=== PATIENT | female | born 1980 | race Caucasian/White ===

== ENCOUNTER 2016-08-24 18:57 | Emergency (ER) | payer SELFPAY ==
[~2016-08-24 18:57] MED LIST: IBUP800 PO; PROZ20CA11 PO; REME15TA PO; TRAM50 PO
[2016-08-24 19:00] VITALS: BP 139/94; PULSE 82; RESP 14; TEMP 98.5; O2SAT 99
== END 2016-08-24 21:23 | disposition left against medical advice (07) ==
LOC: NED 18:57
DX: R25.1 Tremor, unspecified (principal); Z53.21 Procedure and treatment not carried out due to patient leaving prior to being seen by health care provider
CPT/HCPCS: 99281

== ENCOUNTER 2016-12-21 05:21 | Emergency (ER) | payer SELFPAY ==
[2016-12-21 05:23] VITALS: BP 136/101; PULSE 102; RESP 18; TEMP 98.6; O2SAT 97
[2016-12-21 06:14] VITALS: BP 130/77; PULSE 86; RESP 16; O2SAT 96
[2016-12-21] MEDS ORDERED: GABA800T PO (06:16)
[2016-12-21] MEDS ORDERED: PROZ20CA11 PO ×2 (06:16→06:27)
[2016-12-21] MEDS ORDERED: REME45TA PO ×2 (06:16→06:27)
[2016-12-21] MEDS ORDERED: GABA300C5 PO (06:27)
--- NOTE | 2016-12-21 06:27 | PD ---
HPI Chief Complaint: Alcohol/Drug Intoxication Time Seen by Provider: 06:11 Travel History International Travel<30 days: No Contact w/Intl Traveler<30days: No Traveled to known affect area: No History of Present Illness HPI This is a 36-year-old female who presents to the emergency department for help with alcohol dependence. She wants to stop drinking. Her last drink was at 3 AM this morning. She starting to feel shaky, constant, moderate severity, feeling anxious in her scan and she just wants it to stop. She denies any thoughts of hurting herself or others. She really doesn't want to go to a detox program. She is also out of her bipolar medications. PFSH Past Medical History Asthma: Yes Blood Disorders: No Depression: Yes Cancer: No Cardiovascular Problems: No Endocrine: No Genitourinary: No Immune Disorder: No Musculoskeletal: No Neurologic: Yes (BIPOLAR) Psychiatric: No Reproductive: No Respiratory: Yes ?: Not : 2 : 1 Social History Alcohol Use: Yes (vodka, wine all day) Tobacco Use: Yes (1 pk daily) Substance Use: No Allergies-Medications (Allergen,Severity, Reaction): Coded Allergies: No Known Allergies (Unverified , 03/18/15) Reported Meds & Prescriptions Reported Meds & Active Scripts Active Motrin 800 Mg Tab (Ibuprofen) 800 Mg Tab 800 Mg PO Q8HR Ultram (Tramadol HCl) 50 Mg Tab 50 Mg PO Q4H PRN Reported Remeron 15 mg (Mirtazapine) 15 Mg Tab 1 Tab PO HS Prozac (Fluoxetine HCl) 20 Mg Cap 20 Mg PO HS Review of Systems Except as stated in HPI: all other systems reviewed are Neg Physical Exam Narrative GENERAL:Well appearing, no acute distress SKIN: Focused skin assessment warm and dry. HEAD: Atraumatic. Normocephalic. EYES: Pupils equal and round. No injection or drainage. ENT: Moist mucous membranes NECK: Trachea midline. CARDIOVASCULAR: Regular rate and rhythm. No murmur appreciated. RESPIRATORY: Clear to auscultation. Breath sounds equal bilaterally. GASTROINTESTINAL: Abdomen soft, non-tender, nondistended. MUSCULOSKELETAL: No obvious deformities. NEUROLOGICAL: Awake and alert. No obvious cranial nerve deficits. Moving all extremities. PSYCHIATRIC: Tearful, denies suicidal ideation or homicidal ideation. Data Data Last Documented VS Vital Signs Date Time Temp Pulse Resp B/P Pulse Ox O2 Delivery O2 Flow Rate FiO2 12/21/16 06:14 86 16 130/77 96 Room Air 12/21/16 05:[address] [facility] Medical Decision Making Medical Screen Exam Complete: Yes Emergency Medical Condition: Yes Interpretation(s) Afebrile, mild tachycardia, normotensive Differential Diagnosis Acute alcohol withdrawal, delirium tremens, alcoholic hallucinosis Narrative Course This is a 36-year-old female who presents to the emergency department with symptoms of alcohol withdrawal. She stopped drinking earlier this morning. She also is out of her bipolar medications. I think it's reasonable to refill her bipolar medications that are controlled. She was given 2 mg of IM Ativan in the emergency department. She doesn't appear to have delirium tremens or advanced alcohol withdrawal at this time and I think she is appropriate for outpatient therapy. I encouraged her to follow-up with [facility] but I did provide her with gabapentin for the symptoms of withdrawal. Diagnosis Primary Impression: Alcohol withdrawal Qualified Code: F10.230 - Alcohol withdrawal, uncomplicated Patient Instructions: General Instructions Additional Instructions: Follow up with [facility] in regards to psychiatric or substance related issues at: [address] [place], [place] [id number] Med/Other Pt SpecificInfo: Prescription(s) given Scripts Fluoxetine (Prozac)20 Mg Cap20 Mg PO DAILY #30 CAP Ref 0 Prov:Ayla Gore MD 12/21/16 Mirtazapine (Remeron)45 Mg Tab45 Mg PO HS #30 TAB Ref 0 Prov:Ayla Gore MD 12/21/16 Gabapentin 300 Mg Tew099 Mg PO TID #12 CAP Ref 0 Take one tablet three times daily on days 1-3 then one tablet twice daily on day 4 Take one tablet in the evening as needed if symptoms persist Prov:Ayla Gore MD 12/21/16 Disposition: 01 DISCHARGE HOME Condition: Stable Ayla Gore MD Dec 21, 2016 06:27
[2016-12-21] MEDS ORDERED: LORazepam 2 MG/ML VIAL IM ONE (06:30)
[2016-12-21 10:24] VITALS: BP 106/66; PULSE 84; RESP 17; O2SAT 97
== END 2016-12-21 10:35 | disposition home or self-care (01) ==
LOC: NEPE 05:21
DX: F10.239 Alcohol dependence with withdrawal, unspecified (principal); F31.9 Bipolar disorder, unspecified; R00.0 Tachycardia, unspecified; J45.909 Unspecified asthma, uncomplicated; F32.9 Major depressive disorder, single episode, unspecified; F17.200 Nicotine dependence, unspecified, uncomplicated; Z79.899 Other long term (current) drug therapy
CPT/HCPCS: 96372; 99284; J2060

== ENCOUNTER 2016-12-22 20:58 | Emergency (ER) | payer SELFPAY ==
[~2016-12-22] VITALS: Ht 167.6 cm; Wt 67.0 kg
[~2016-12-22 20:58] MED LIST changes: +GABA300C5 PO; +GABA800T PO; -IBUP800 PO; -REME15TA PO; +REME45TA PO; -TRAM50 PO
[2016-12-22 21:01] VITALS: BP 153/106; PULSE 117; RESP 16; TEMP 98.9; O2SAT 97
--- NOTE | 2016-12-22 21:37 | PD ---
Physical Exam Time Seen by Provider: 21:36 Narrative 36 y/o female here for evaluation of withdrawal from alcohol/cocaine. Last used 4 days ago. Seen here yesterday for the same. She feels anxious, tremulous and nauseas. Vital signs reviewed. Seen at triage desk. Awaiting bed placement. Data Data Last Documented VS Vital Signs Date Time Temp Pulse Resp B/P Pulse Ox O2 Delivery O2 Flow Rate FiO2 12/22/16 21:01 98.9 117 16 153/106 97 Room Air [facility] Medical Record Reviewed: Yes Supervised Visit with OLLIE: Betito Lynn Dec 22, 2016 21:37
== END 2016-12-22 21:56 | disposition left against medical advice (07) ==
LOC: NED 20:58
DX: F10.239 Alcohol dependence with withdrawal, unspecified (principal)
CPT/HCPCS: 99281

== ENCOUNTER 2017-02-25 08:57 | Emergency (ER) | payer SELFPAY ==
[~2017-02-25] VITALS: Ht 167.6 cm; Wt 65.0 kg
[2017-02-25 09:05] VITALS: BP 126/61; PULSE 97; RESP 18; TEMP 98.2; O2SAT 99
[2017-02-25] MEDS ORDERED: SODIUM CHLOR 0.9% 1000 ML INJ 1,000 ML IV ONE (09:30)
[2017-02-25] MEDS ORDERED: ONDANSETRON HCL 4 MG/2 ML VIAL IV PUSH ONE ×2 (09:30→12:00)
[2017-02-25 10:08] LABS: AUTOMATED NEUTROPHIL # 5.3 TH/MM3 (1.8-7.7); BASOPHIL % 0.2 % (0.0-2.0); EOSINOPHIL % 0.3 % (0.0-4.0); HEMATOCRIT 44.1 % (35.0-46.0); HEMO FLAGS DIFF FINAL; LYMPH % 13.9 % (9.0-44.0); LYMPHOCYTE # 0.9 TH/MM3 (1.0-4.8); MEAN CELL VOLUME 90.9 FL (80.0-100.0); MEAN CORPUSCULAR HEMOGLOBIN 30.7 PG (27.0-34.0); MEAN CORPUSCULAR HGB CONC 33.8 % (32.0-36.0); NEUT % 79.6 % (16.0-70.0); PLATELET COUNT 177 TH/MM3 (150-450); RED BLOOD COUNT 4.85 MIL/MM3 (4.00-5.30); RED CELL DISTRIBUTION WIDTH 12.9 % (11.6-17.2); WHITE BLOOD COUNT 6.7 TH/MM3 (4.0-11.0)
[2017-02-25 10:30] LABS: ANION GAP 13 MEQ/L (5-15); AST (GOT) 34 U/L (15-37); BICARBONATE 21.5 MEQ/L (21.0-32.0); CHLORIDE 104 MEQ/L (98-107); GLOMERULAR FILTRATION RATE 89 ML/MIN (>89); POTASSIUM 3.7 MEQ/L (3.5-5.1); SODIUM (NA) 138 MEQ/L (136-145)
--- NOTE | 2017-02-25 10:34 | PD ---
HPI Chief Complaint: Alcohol/Drug Intoxication Time Seen by Provider: 09:16 Travel History International Travel<30 days: No Contact w/Intl Traveler<30days: No Traveled to known affect area: No History of Present Illness HPI 36-year-old female came to the emergency room with history of alcohol withdrawal. Patient says that she had successfully done the rehabilitation for alcohol and was clean for 5 years and then 8 months ago started drinking and has progressively increased to about 18 beers a day. She went to [facility] yesterday to check herself in for rehabilitation again but was turned down because she was drunk as per them. Patient says that in past 24 hours she has drank 12 beers but the last one was at 9 PM. Says she feels very sick. She has vomited few times and feels shaky. She now she is withdrawing. She was brought in by EMS. Patient seemed to be distressed and tearful. Vital signs were relatively stable. She is also on psych medication and says she's been taking them like she supposed to. She denied doing any drugs. [facility] Past Medical History Narrative Medical List of her past medical, surgical, social and family history is reviewed from the nursing note. Asthma: Yes Blood Disorders: No Bipolar Disorder: Yes Depression: Yes Cancer: No Cardiovascular Problems: No Endocrine: No Genitourinary: No Immune Disorder: No Musculoskeletal: No Neurologic: Yes (BIPOLAR) Psychiatric: No Reproductive: No Respiratory: Yes Seizures: Yes (ETOH WITHDRAWL) ?: Not LMP: 01/28/17 : 2 : 1 Past Surgical History Surgical History: No Previous Surgery Other Surgery: No Social History Alcohol Use: Yes (vodka, wine all day) Tobacco Use: Yes (1 pk daily) Substance Use: No Allergies-Medications (Allergen,Severity, Reaction): Coded Allergies: No Known Allergies (Unverified , 12/22/16) Comments No known drug allergies. Reported Meds & Prescriptions Reported Meds & Active Scripts Active Reported Gabapentin 800 Mg Tab 800 Mg PO TID Prozac (Fluoxetine HCl) 20 Mg Cap 20 Mg PO DAILY Remeron (Mirtazapine) 45 Mg Tab 45 Mg PO HS Narrative Medication List of her home medications reviewed from the nursing note. Review of Systems Except as stated in HPI: all other systems reviewed are Neg Physical Exam Narrative GENERAL: Awake, alert, anxious, moderate distress SKIN: Focused skin assessment warm/dry. HEAD: Atraumatic. Normocephalic. EYES: Pupils equal and round. No scleral icterus. No injection or drainage. ENT: No nasal bleeding or discharge. Mucous membranes pink and moist. NECK: Trachea midline. No JVD. CARDIOVASCULAR: Regular rate and rhythm. No murmur appreciated. RESPIRATORY: No accessory muscle use. Clear to auscultation. Breath sounds equal bilaterally. GASTROINTESTINAL: Abdomen soft, non-tender, nondistended. Hepatic and splenic margins not palpable. MUSCULOSKELETAL: No obvious deformities. No clubbing. No cyanosis. No edema. NEUROLOGICAL: Awake and alert. No obvious cranial nerve deficits. Motor grossly within normal limits. Normal speech. Tremors PSYCHIATRIC: Appropriate mood and affect; insight and judgment normal. Data Data Last Documented VS Orders Orders Complete Blood Count With Diff (02/25/17 09:16) Comprehensive Metabolic Panel (02/25/17 09:16) Ed Urine Pregnancytest Poc (02/25/17 09:16) Electrocardiogram (02/25/17 09:16) Drug Screen, Random Urine (02/25/17 09:16) Alcohol (Ethanol) (02/25/17 09:16) Sodium Chlor 0.9% 1000 Ml Inj (Ns 1000 M (02/25/17 09:30) Chlordiazepoxide (Librium) (02/25/17 09:30) Ondansetron Inj (Zofran Inj) (02/25/17 09:30) Chlordiazepoxide (Librium) (02/25/17 11:30) Ondansetron Inj (Zofran Inj) (02/25/17 12:00) Electrocardiogram (02/25/17 11:19) Labs Laboratory Tests Test 02/25/17 09:30 02/25/17 09:55 White Blood Count 6.7 TH/MM3 Red Blood Count 4.85 MIL/MM3 Hemoglobin 14.9 GM/DL Hematocrit 44.1 % Mean Corpuscular Volume 90.9 FL Mean Corpuscular Hemoglobin 30.7 PG Mean Corpuscular Hemoglobin Concent 33.8 % Red Cell Distribution Width 12.9 % Platelet Count 177 TH/MM3 Mean Platelet Volume 10.5 FL Neutrophils (%) (Auto) 79.6 % Lymphocytes (%) (Auto) 13.9 % Monocytes (%) (Auto) 6.0 % Eosinophils (%) (Auto) 0.3 % Basophils (%) (Auto) 0.2 % Neutrophils # (Auto) 5.3 TH/MM3 Lymphocytes # (Auto) 0.9 TH/MM3 Monocytes # (Auto) 0.4 TH/MM3 Eosinophils # (Auto) 0.0 TH/MM3 Basophils # (Auto) 0.0 TH/MM3 CBC Comment DIFF FINAL Differential Comment Blood Urea Nitrogen 8 MG/DL Creatinine 0.74 MG/DL Random Glucose 72 MG/DL Total Protein 7.8 GM/DL Albumin 4.1 GM/DL Calcium Level 8.7 MG/DL Alkaline Phosphatase 72 U/L Aspartate Amino Transf (AST/SGOT) 34 U/L Alanine Aminotransferase (ALT/SGPT) 29 U/L Total Bilirubin 0.6 MG/DL Sodium Level 138 MEQ/L Potassium Level 3.7 MEQ/L Chloride Level 104 MEQ/L Carbon Dioxide Level 21.5 MEQ/L Anion Gap 13 MEQ/L Estimat Glomerular Filtration Rate 89 ML/MIN Ethyl Alcohol Level 43 MG/DL Urine Opiates Screen NEG Urine Barbiturates Screen NEG Urine Amphetamines Screen NEG Urine Benzodiazepines Screen NEG Urine Cocaine Screen POS Urine Cannabinoids Screen NEG MDM Medical Decision Making Medical Screen Exam Complete: Yes Emergency Medical Condition: Yes Medical Record Reviewed: Yes Differential Diagnosis Alcohol withdrawal, impending DTs Narrative Course 10:33 AM awaiting for the blood test results. Patient was given by mouth Librium and IV fluid bolus. Also Zofran for nausea. She told by the nurse that she wants to drink something. I noticed that her sugar was 75 and she will be given orange juice and crackers. Eventual goal will be to give her another Librium and discharge her so that she can check herself in to [facility]. Procedures EKG Prior to Arrival: No Diagnosis Primary Impression: Alcohol withdrawal Qualified Codes: F10.239 - Alcohol dependence with withdrawal, unspecified Additional Impression: Alcohol dependence Qualified Codes: F10.239 - Alcohol dependence with withdrawal, unspecified Referrals: Primary Care Physician Additional Instructions: Please go to [facility] as soon as you have been discharged from the emergency room. Try to get herself checked in. Return to the ER if the condition worsens or any other new concerns. Med/Other Pt SpecificInfo: No Change to Meds Disposition: 01 DISCHARGE HOME Condition: Stable Mirna,Shravanti R. MD Feb 25, 2017 10:34
[2017-02-25 10:35] LABS: ALKALINE PHOSPHATASE 72 U/L (45-117); ALT (GPT) 29 U/L (10-53); BLOOD UREA NITROGEN 8 MG/DL (7-18); TOTAL BILIRUBIN ADULT 0.6 MG/DL (0.2-1.0)
[2017-02-25 10:40] LABS: ALCOHOL 43 MG/DL (0-5)
[2017-02-25 11:45] VITALS: BP 121/68; PULSE 76; PULSE 85; RESP 20; O2SAT 97
--- NOTE | 2017-02-26 14:00 | EKG ---
Date Performed: 02/25/2017 Time Performed: 09:24:18 PTAGE: 36 years EKG: Sinus rhythm Marked baseline artifact Tracing probably within normal limits PREVIOUS TRACING : 06/29/2013 21.09 Since previous tracing, other than the artifact, no s ignificant change. DOCTOR: Yonatan Barth Interpretating Date/Time 02/26/2017 13:58:07
--- NOTE | 2017-02-26 14:00 | EKG ---
Date Performed: 02/25/2017 Time Performed: 11:19:48 PTAGE: 36 years EKG: Sinus rhythm LOW QRS VOLTAGE IN PRECORDIAL LEADS BORDERLINE ECG INTERPRETATION BASED ON A DEFAULT AGE OF 40 YEARS PREVIOUS TRACING : 02/25/2017 09.24 Compared to prior tracing no significant change DOCTOR: Yonatan Barth Interpretating Date/Time 02/26/2017 13:58:27
== END 2017-02-25 13:22 | disposition home or self-care (01) ==
LOC: NEPC 08:57
DX: F10.239 Alcohol dependence with withdrawal, unspecified (principal); R94.31 Abnormal electrocardiogram [ECG] [EKG]; F32.9 Major depressive disorder, single episode, unspecified; F17.210 Nicotine dependence, cigarettes, uncomplicated; F14.90 Cocaine use, unspecified, uncomplicated
CPT/HCPCS: 80053; 80307; 84703; 85025; 93005; 96361; 96374; 96376; 99284; J2405; J7030

== ENCOUNTER 2017-05-05 11:28 | Emergency (ER) | payer SELFPAY ==
[~2017-05-05] VITALS: Ht 167.6 cm; Wt 68.5 kg
[~2017-05-05 11:28] MED LIST changes: -GABA300C5 PO
[2017-05-05 11:29] VITALS: BP 143/78; PULSE 107; RESP 20; TEMP 98.1; O2SAT 96
[2017-05-05] MEDS ORDERED: PROZ40CA PO (13:49)
[2017-05-05] MEDS ORDERED: GABA800T PO (13:49)
--- NOTE | 2017-05-05 13:50 | PD ---
HPI Chief Complaint: Medication Refill Request Time Seen by Provider: 13:15 Travel History International Travel<30 days: No Contact w/Intl Traveler<30days: No Traveled to known affect area: No History of Present Illness HPI Patient is a 36 year old female who comes in because she needs refills of her prescriptions. She takes Prozac and Gabapentin. She says she has not had these in the past 2 days. She tried to go to [facility] for refills, but they couldn't see her and told her to come here. She denies any symptoms at this time other than some anxiety. She denies any suicidal or homicidal ideation. She has no medical complaints. PFSH Past Medical History Asthma: Yes Blood Disorders: No Bipolar Disorder: Yes Depression: Yes Cancer: No Cardiovascular Problems: No Endocrine: No Genitourinary: No Immune Disorder: No Musculoskeletal: No Neurologic: Yes (BIPOLAR) Psychiatric: No Reproductive: No Respiratory: Yes Seizures: Yes (ETOH WITHDRAWL) ?: Not LMP: 05/04/17 : 2 : 1 Past Surgical History Other Surgery: No Social History Alcohol Use: Yes (vodka, wine all day) Tobacco Use: Yes (1 pk daily) Substance Use: No Allergies-Medications (Allergen,Severity, Reaction): Coded Allergies: No Known Allergies (Unverified , 12/22/16) Reported Meds & Prescriptions Reported Meds & Active Scripts Active Reported Gabapentin 800 Mg Tab 800 Mg PO TID Prozac (Fluoxetine HCl) 20 Mg Cap 20 Mg PO DAILY Remeron (Mirtazapine) 45 Mg Tab 45 Mg PO HS Review of Systems General / Constitutional: No: Fever, Chills HENT: No: Headaches, Lightheadedness Cardiovascular: No: Chest Pain or Discomfort Respiratory: No: Shortness of Breath Gastrointestinal: No: Nausea, Vomiting Musculoskeletal: No: Myalgias, Edema Skin: No Change in Pigmentation Neurologic: No: Weakness, Dizziness Psychiatric: Positive: Anxiety Physical Exam Narrative GENERAL: Awake and alert, in no acute distress. SKIN: Focused skin assessment warm/dry. No wounds HEAD: Atraumatic. Normocephalic. EYES: Pupils equal and round. No scleral icterus. Extraocular movements intact. ENT: Mucous membranes pink and moist. CARDIOVASCULAR: Regular rate and rhythm. No murmur appreciated. RESPIRATORY: No accessory muscle use. Clear to auscultation. Breath sounds equal bilaterally. NEUROLOGICAL: Awake and alert. No obvious cranial nerve deficits. Motor grossly within normal limits. Normal speech. PSYCHIATRIC: Appropriate mood and affect; insight and judgment normal. Data Data Last Documented VS Vital Signs Date Time Temp Pulse Resp B/P (MAP) Pulse Ox O2 Delivery O2 Flow Rate FiO2 05/05/17 11:29 98.1 107 20 143/78 (99) 96 Room Air MDM Medical Decision Making Medical Screen Exam Complete: Yes Emergency Medical Condition: Yes Medical Record Reviewed: Yes Differential Diagnosis Encounter for med refill versus anxiety versus depression Narrative Course Patient is a 36-year-old female who comes in for refills of her Prozac and gabapentin. She has no complaints at this time. Patient given prescriptions and advised to keep the appointment that she has what [facility] on May 31. Advised to return to the ED as needed for any worsening symptoms. Diagnosis Primary Impression: Medication refill Patient Instructions: General Instructions, Medication Refill, ED Additional Instructions: Keep her appointment and follow-up at [facility] on May 31. Return to the ED as needed for any worsening symptoms. Scripts Gabapentin (Gabapentin) 800 Mg Tab 800 MG PO QID, #120 TAB 0 Refills Prov: Chanell Kirby MD 05/05/17 Fluoxetine (Prozac) 40 Mg Cap 40 MG PO DAILY, #30 CAP 0 Refills Prov: Chanell Kirby MD 05/05/17 Disposition: 01 DISCHARGE HOME Condition: Stable Chanell Kirby MD May 05, 2017 13:49
== END 2017-05-05 14:17 | disposition home or self-care (01) ==
LOC: NEPD 11:28
DX: Z76.0 Encounter for issue of repeat prescription (principal); F41.9 Anxiety disorder, unspecified; J45.909 Unspecified asthma, uncomplicated; F31.9 Bipolar disorder, unspecified; R56.9 Unspecified convulsions; F17.200 Nicotine dependence, unspecified, uncomplicated; Z79.899 Other long term (current) drug therapy
CPT/HCPCS: 99281

== ENCOUNTER 2017-08-25 13:56 | Emergency (ER) | payer SELFPAY ==
[~2017-08-25] VITALS: Ht 167.6 cm; Wt 68.0 kg
[~2017-08-25 13:56] MED LIST changes: +PROZ40CA PO
[2017-08-25 14:19] VITALS: BP 136/66; PULSE 109; RESP 18; TEMP 98.7; O2SAT 97
[2017-08-25 15:24] LABS: BILIRUBIN, URINE NEG (NEG); BLOOD, URINE NEG (NEG); GLUCOSE,URINE NEG (NEG); KETONE, URINE NEG (NEG); NITRITE,URINE NEG (NEG); SQUAMOUS EPITHELIAL CELL URINE 1 /hpf (0-5); URINE COLOR YELLOW (YELLW/STRAW); URINE LEUKOCYTE ESTERASE NEG (NEG)
== END 2017-08-25 16:11 | disposition left against medical advice (07) ==
LOC: NED 13:56
DX: R10.9 Unspecified abdominal pain (principal); Z53.21 Procedure and treatment not carried out due to patient leaving prior to being seen by health care provider
CPT/HCPCS: 81001; 84703; 99281

== ENCOUNTER 2017-09-08 16:17 | Emergency (ER) | payer SELFPAY ==
[~2017-09-08] VITALS: Ht 167.6 cm; Wt 77.0 kg
[2017-09-08 16:20] VITALS: BP 150/83; PULSE 92; RESP 16; TEMP 98.2; O2SAT 97
[2017-09-08] MEDS ORDERED: SODIUM CHLOR 0.9% 1000 ML INJ 1,000 ML IV SCH (16:53)
[2017-09-08] MEDS ORDERED: ONDANSETRON HCL 4 MG/2 ML VIAL IVP ONE (17:00)
[2017-09-08] MEDS ORDERED: MORPHINE SULFATE 4 MG/ML INJ IV PUSH ONE (17:00)
[2017-09-08] MEDS ORDERED: KETOROLAC TROMETHAMINE 30 MG/ML (IVP) VIAL IVP ONE (17:00)
[2017-09-08] MEDS ORDERED: SODIUM CHLORIDE 0.9% FLUSH 10 ML FLUSH IV FLUSH PRN (17:00)
--- NOTE | 2017-09-08 17:03 | PD ---
HPI Chief Complaint: Abdominal Pain Time Seen by Provider: 16:24 Travel History International Travel<30 days: No Contact w/Intl Traveler<30days: No Traveled to known affect area: No History of Present Illness HPI The patient is a 36-year-old female who presents to the emergency department for right flank pain. The patient is a 1-1/2 week history of right flank pain that is located right lower quadrant, radiates to the right flank into the right low back. Pain is intermittent, sharp, associated with mild nausea. The patient denies any vomiting, diarrhea, change in bowel habits. She does complain of mild dysuria without any frequency, urgency, vaginal bleeding, or vaginal discharge. The patient's last menstrual cycle was in May, she normally has regular menstrual cycle. However, she has had multiple negative test at home and had a negative test at her physician's office last week. Patient does have a history of previous left ectopic with removal of left fallopian tube. Symptoms are moderate. There are no current alleviating or exacerbating factors. She denies any associated fever, chills, or sweats. PFSH Past Medical History Hx Anticoagulant Therapy: No Asthma: Yes Blood Disorders: No Bipolar Disorder: Yes Depression: Yes Cancer: No Cardiovascular Problems: No Diabetes: No Endocrine: No Genitourinary: No Immune Disorder: No Musculoskeletal: No Neurologic: Yes (BIPOLAR) Psychiatric: No Reproductive: No Respiratory: Yes Seizures: Yes (ETOH WITHDRAWL) ?: Unknown : 2 : 1 Past Surgical History Other Surgery: No Social History Alcohol Use: Yes (OCCASIONALLY ) Tobacco Use: Yes (1 pk daily) Substance Use: No Allergies-Medications (Allergen,Severity, Reaction): Coded Allergies: No Known Allergies (Unverified Adverse Reaction, Unknown, 09/08/17) Reported Meds & Prescriptions Reported Meds & Active Scripts Active Gabapentin 800 Mg Tab 800 Mg PO QID Prozac (Fluoxetine HCl) 40 Mg Cap 40 Mg PO DAILY Reported Gabapentin 800 Mg Tab 800 Mg PO TID Prozac (Fluoxetine HCl) 20 Mg Cap 20 Mg PO DAILY Remeron (Mirtazapine) 45 Mg Tab 45 Mg PO HS Review of Systems Except as stated in HPI: all other systems reviewed are Neg General / Constitutional: No: Fever, Chills Cardiovascular: No: Chest Pain or Discomfort Respiratory: No: Shortness of Breath Gastrointestinal: Positive: Nausea, Abdominal Pain, No: Vomiting, Diarrhea Genitourinary: Positive: Dysuria, Pelvic Pain, No: Urgency, Frequency, Hematuria, Discharge, Vaginal Bleeding Skin: No Rash Physical Exam Narrative GENERAL: Awake, alert, pleasant 36-year-old female who appears her stated age and is in no acute respiratory distress. SKIN: Focused skin assessment warm/dry. HEAD: Atraumatic. Normocephalic. EYES: Pupils equal and round. No scleral icterus. No injection or drainage. ENT: No nasal bleeding or discharge. Mucous membranes pink and moist. NECK: Trachea midline. No JVD. CARDIOVASCULAR: Regular rate and rhythm. No murmur appreciated. RESPIRATORY: No accessory muscle use. Clear to auscultation. Breath sounds equal bilaterally. GASTROINTESTINAL: Abdomen soft, tender to palpation right lower quadrant. No guarding rigidity. No suprapubic tenderness. Back: No CVA tenderness. MUSCULOSKELETAL: No obvious deformities. No clubbing. No cyanosis. No edema. NEUROLOGICAL: Awake and alert. No obvious cranial nerve deficits. Motor grossly within normal limits. Normal speech. PSYCHIATRIC: Appropriate mood and affect; insight and judgment normal. Data Data Last Documented VS Vital Signs Date Time Temp Pulse Resp B/P (MAP) Pulse Ox O2 Delivery O2 Flow Rate FiO2 09/08/17 17:20 98 09/08/17 16:57 16 09/08/17 16:20 98.2 92 150/83 (105) Orders Orders Complete Blood Count With Diff (09/08/17 16:53) Comprehensive Metabolic Panel (09/08/17 16:53) Lipase (09/08/17 16:53) Lactic Acid (09/08/17 16:53) Urinalysis - C+S If Indicated (09/08/17 16:53) Ct Abd/Pel W/O Iv Contrast (09/08/17 16:53) Iv Access Insert/Monitor (09/08/17 16:53) Ecg Monitoring (09/08/17 16:53) Oximetry (09/08/17 16:53) Morphine Inj (Morphine Inj) (09/08/17 17:00) Ondansetron Inj (Zofran Inj) (09/08/17 17:00) Sodium Chlor 0.9% 1000 Ml Inj (Ns 1000 M (09/08/17 16:53) Sodium Chloride 0.9% Flush (Ns Flush) (09/08/17 17:00) Ketorolac Inj (Toradol Inj) (09/08/17 17:00) Ed Urine Pregnancytest Poc (09/08/17 16:53) Beta Hcg (Quant/Titer) (09/08/17 17:12) Urine Culture (09/08/17 17:12) Azithromycin Powd Pack (Zithromax Powd P (09/08/17 18:15) Rocephin 250mg Vial Im X 1 (09/08/17 18:15) Lidocaine 1% Inj (50 Ml) (Xylocaine 1% I (09/08/17 18:15) Labs Laboratory Tests Test 09/08/17 17:12 White Blood Count 6.1 TH/MM3 Red Blood Count 4.87 MIL/MM3 Hemoglobin 13.9 GM/DL Hematocrit 41.5 % Mean Corpuscular Volume 85.3 FL Mean Corpuscular Hemoglobin 28.5 PG Mean Corpuscular Hemoglobin Concent 33.4 % Red Cell Distribution Width 12.0 % Platelet Count 158 TH/MM3 Mean Platelet Volume 9.5 FL Neutrophils (%) (Auto) 55.5 % Lymphocytes (%) (Auto) 34.4 % Monocytes (%) (Auto) 8.5 % Eosinophils (%) (Auto) 1.1 % Basophils (%) (Auto) 0.5 % Neutrophils # (Auto) 3.4 TH/MM3 Lymphocytes # (Auto) 2.1 TH/MM3 Monocytes # (Auto) 0.5 TH/MM3 Eosinophils # (Auto) 0.1 TH/MM3 Basophils # (Auto) 0.0 TH/MM3 CBC Comment AUTO DIFF Differential Comment AUTO DIFF CONFIRMED Platelet Estimate NORMAL Platelet Morphology Comment ENLARGED Urine Collection Type VOIDED Urine Color YELLOW Urine Turbidity CLEAR Urine pH 6.0 Urine Specific [place] 1.025 Urine Protein NEG mg/dL Urine Glucose (UA) NEG mg/dL Urine Ketones NEG mg/dL Urine Occult Blood NEG Urine Nitrite NEG Urine Bilirubin NEG Urine Urobilinogen 0.2 MG/DL Urine Leukocyte Esterase NEG Urine WBC 3-5 /hpf Urine Squamous Epithelial Cells > 8 /hpf Urine Amorphous Sediment SMALL Urine Bacteria MOD /hpf Urine Mucus MANY /lpf Microscopic Urinalysis Comment CULTURE INDICATED Blood Urea Nitrogen 11 MG/DL Creatinine 0.77 MG/DL Random Glucose 76 MG/DL Total Protein 7.3 GM/DL Albumin 3.7 GM/DL Calcium Level 9.0 MG/DL Alkaline Phosphatase 91 U/L Aspartate Amino Transf (AST/SGOT) 25 U/L Alanine Aminotransferase (ALT/SGPT) 29 U/L Total Bilirubin 0.4 MG/DL Sodium Level 138 MEQ/L Potassium Level 3.6 MEQ/L Chloride Level 103 MEQ/L Carbon Dioxide Level 27.7 MEQ/L Anion Gap 7 MEQ/L Estimat Glomerular Filtration Rate 85 ML/MIN Lactic Acid Level 0.7 mmol/L Lipase 273 U/L Human Chorionic Gonadotropin, Quant 2 MIU/ML [facility] Medical Decision Making Medical Screen Exam Complete: Yes Emergency Medical Condition: Yes Medical Record Reviewed: Yes Interpretation(s) Last Impressions Abdomen/Pelvis CT 09/08/17 [id number] Signed Impressions: Service Date/Time: Friday, September 08, 2017 17:17 - CONCLUSION: 1. Negative noncontrast CT abdomen/pelvis. No calcified renal stones or hydronephrosis. Derrell Cope MD Laboratory Tests Test 09/08/17 17:12 White Blood Count 6.1 TH/MM3 Red Blood Count 4.87 MIL/MM3 Hemoglobin 13.9 GM/DL Hematocrit 41.5 % Mean Corpuscular Volume 85.3 FL Mean Corpuscular Hemoglobin 28.5 PG Mean Corpuscular Hemoglobin Concent 33.4 % Red Cell Distribution Width 12.0 % Platelet Count 158 TH/MM3 Mean Platelet Volume 9.5 FL Neutrophils (%) (Auto) 55.5 % Lymphocytes (%) (Auto) 34.4 % Monocytes (%) (Auto) 8.5 % Eosinophils (%) (Auto) 1.1 % Basophils (%) (Auto) 0.5 % Neutrophils # (Auto) 3.4 TH/MM3 Lymphocytes # (Auto) 2.1 TH/MM3 Monocytes # (Auto) 0.5 TH/MM3 Eosinophils # (Auto) 0.1 TH/MM3 Basophils # (Auto) 0.0 TH/MM3 CBC Comment AUTO DIFF Differential Comment AUTO DIFF CONFIRMED Platelet Estimate NORMAL Platelet Morphology Comment ENLARGED Urine Collection Type VOIDED Urine Color YELLOW Urine Turbidity CLEAR Urine pH 6.0 Urine Specific [place] 1.025 Urine Protein NEG mg/dL Urine Glucose (UA) NEG mg/dL Urine Ketones NEG mg/dL Urine Occult Blood NEG Urine Nitrite NEG Urine Bilirubin NEG Urine Urobilinogen 0.2 MG/DL Urine Leukocyte Esterase NEG Urine WBC 3-5 /hpf Urine Squamous Epithelial Cells > 8 /hpf Urine Amorphous Sediment SMALL Urine Bacteria MOD /hpf Urine Mucus MANY /lpf Microscopic Urinalysis Comment CULTURE INDICATED Blood Urea Nitrogen 11 MG/DL Creatinine 0.77 MG/DL Random Glucose 76 MG/DL Total Protein 7.3 GM/DL Albumin 3.7 GM/DL Calcium Level 9.0 MG/DL Alkaline Phosphatase 91 U/L Aspartate Amino Transf (AST/SGOT) 25 U/L Alanine Aminotransferase (ALT/SGPT) 29 U/L Total Bilirubin 0.4 MG/DL Sodium Level 138 MEQ/L Potassium Level 3.6 MEQ/L Chloride Level 103 MEQ/L Carbon Dioxide Level 27.7 MEQ/L Anion Gap 7 MEQ/L Estimat Glomerular Filtration Rate 85 ML/MIN Lactic Acid Level 0.7 mmol/L Lipase 273 U/L Human Chorionic Gonadotropin, Quant 2 MIU/ML Differential Diagnosis Differential diagnosis includes , ectopic , ovarian torsion, ovarian cyst, appendicitis, atypical biliary colic, nephrolithiasis, hydronephrosis, cervicitis, PID, vaginitis. Narrative Course IV was established, labs are drawn and sent, and the patient was placed on cardiac telemetry monitoring and continuous pulse oximetry monitoring. Bedside UA test was obtained, was negative. Will send quantitative beta-hCG to lab, less likely to be positive. Noncontrast CT the abdomen and pelvis was performed to evaluate for possible nephrolithiasis. UA was sent to lab. The patient was administered morphine, Toradol, Zofran, and IV fluids. Quantitative beta-hCG was 2, laboratory evaluation is unremarkable. UA reveals bacteria but no WBCs. I did discussion with the patient regarding possible pelvic infection including bacterial vaginosis, trichomonas, gonorrhea, chlamydia, and yeast. Patient states she is concerned she may have an infection , I offered to perform a pelvic examination, but, patient declined. However she would like to be treated. Therefore, patient was administered Rocephin 250 mg IM and Zithromax 1 g p.o. She will be discharged home on Flagyl. She is advised to follow-up with a primary physician. Return if symptoms worsen or progress. Diagnosis Primary Impression: Right flank pain Patient Instructions: General Instructions Additional Instructions: Medications as directed. Follow-up with your primary physician. Return if symptoms worsen or progress. Please provide the patient copy of her CT results and lab results at discharge. Med/Other Pt SpecificInfo: Prescription(s) given Scripts Ibuprofen (Ibuprofen) 600 Mg Tab 600 MG PO Q6H Y for Pain/Inflammation, #20 TAB 0 Refills Prov: Maninder Forrester MD 09/08/17 Metronidazole (Flagyl) 500 Mg Tab 500 MG PO BID for Infection for 10 Days, #20 TAB 0 Refills Prov: Maninder Forrester MD 09/08/17 Disposition: 01 DISCHARGE HOME Condition: Stable Maninder Forrester MD Sep 08, 2017 17:03
[2017-09-08 17:20] VITALS: O2SAT 98
[2017-09-08 17:24] LABS: BILIRUBIN, URINE NEG (NEG); BLOOD, URINE NEG (NEG); GLUCOSE,URINE NEG (NEG); KETONE, URINE NEG (NEG); NITRITE,URINE NEG (NEG); URINE COLOR YELLOW (YELLW/STRAW); URINE LEUKOCYTE ESTERASE NEG (NEG)
[2017-09-08 17:29] LABS: AUTOMATED NEUTROPHIL # 3.4 TH/MM3 (1.8-7.7); BASOPHIL % 0.5 % (0.0-2.0); EOSINOPHIL # 0.1 TH/MM3 (0-0.4); EOSINOPHIL % 1.1 % (0.0-4.0); HEMATOCRIT 41.5 % (35.0-46.0); HEMOGLOBIN 13.9 GM/DL (11.6-15.3); LYMPH % 34.4 % (9.0-44.0); LYMPHOCYTE # 2.1 TH/MM3 (1.0-4.8); MEAN CELL VOLUME 85.3 FL (80.0-100.0); MEAN CORPUSCULAR HEMOGLOBIN 28.5 PG (27.0-34.0); MEAN CORPUSCULAR HGB CONC 33.4 % (32.0-36.0); MEAN PLATELET VOLUME 9.5 FL (7.0-11.0); MONO % 8.5 % (0.0-8.0); MONOCYTE # 0.5 TH/MM3 (0-0.9); NEUT % 55.5 % (16.0-70.0); PLATELET COUNT 158 TH/MM3 (150-450); RED BLOOD COUNT 4.87 MIL/MM3 (4.00-5.30); WHITE BLOOD COUNT 6.1 TH/MM3 (4.0-11.0)
[2017-09-08 17:31] LABS: CHLORIDE 103 MEQ/L (98-107); SODIUM (NA) 138 MEQ/L (136-145)
[2017-09-08 17:34] LABS: ALBUMIN 3.7 GM/DL (3.4-5.0); BICARBONATE 27.7 MEQ/L (21.0-32.0)
[2017-09-08 17:35] LABS: BLOOD UREA NITROGEN 11 MG/DL (7-18); GLUCOSE,RANDOM 76 MG/DL (74-106)
[2017-09-08 17:37] LABS: ALT (GPT) 29 U/L (10-53); AST (GOT) 25 U/L (15-37); CREATININE 0.77 MG/DL (0.50-1.00); GLOMERULAR FILTRATION RATE 85 ML/MIN (>89)
[2017-09-08 17:39] LABS: TOTAL BILIRUBIN ADULT 0.4 MG/DL (0.2-1.0); TOTAL PROTEIN 7.3 GM/DL (6.4-8.2)
[2017-09-08 17:40] LABS: ALKALINE PHOSPHATASE 91 U/L (45-117)
[2017-09-08 17:44] LABS: MUCUS URINE MANY /lpf (OCC)
[2017-09-08 17:46] LABS: AMORPHOUS SEDIMENT, URINE SMALL; BACTERIA, URINE MOD /hpf; SQUAMOUS EPITHELIAL CELL URINE > 8 /hpf (0-5)
--- NOTE | 2017-09-08 17:52 | RADRPT ---
EXAM DATE/TIME: 09/08/2017 17:17 [place] COMPARISON: No previous studies available for comparison. INDICATIONS : Right flank and right lower quadrant pain. Nausea. ORAL CONTRAST: No oral contrast ingested. RADIATION DOSE: 14.55 CTDIvol (mGy) MEDICAL HISTORY : Seizures. Asthma. SURGICAL HISTORY : None. ENCOUNTER: Initial ACUITY: 1 week PAIN SCALE: 9/10 LOCATION: Right flank TECHNIQUE: Volumetric scanning of the abdomen and pelvis was performed. Using automated exposure control and ad justment of the mA and/or kV according to patient size, radiation dose was kept as low as reasonably achievable to obtain optimal diagnostic quality images. DICOM format image data is available electro nically for review and comparison. FINDINGS: LOWER LUNGS: The visualized lower lungs are clear. LIVER: Homogeneous density without lesion. There is no dilation of the biliary tree. No calcified gallston es. SPLEEN: Normal size without lesion. PANCREAS: Within normal limits. KIDNEYS: No evidence of hydronephrosis. No calcified stones in the collecting system or ureters on either emilie e. ADRENAL GLANDS: Within normal limits. VASCULAR: There is no aortic aneurysm. BOWEL/MESENTERY: No dilated loops of small or large bowel. No evidence of free fluid. ABDOMINAL WALL: Within normal limits. RETROPERITONEUM: There is no lymphadenopathy. BLADDER: Smooth margins. No calcifications within the lumen. REPRODUCTIVE: Within normal limits. INGUINAL: There is no lymphadenopathy or hernia. MUSCULOSKELETAL: Within normal limits for patient age. CONCLUSION: 1. Negative noncontrast CT abdomen/pelvis. No calcified renal stones or hydronephrosis. Derrell Cope MD on September 08, 2017 at 17:47 Board Certified Radiologist. This report was verified electronically.
[2017-09-08] MEDS ORDERED: AZITHROMYCIN PWD FOR SUSP 1 GM PACKET PO ONE (18:15)
[2017-09-08] MEDS ORDERED: cefTRIAXone 250 MG VIAL IM ONE (18:15)
[2017-09-08] MEDS ORDERED: LIDOCAINE HCL 1% 50 ML VIAL IM ONE (18:15)
[2017-09-08] MEDS ORDERED: METR-1 PO (18:20)
[2017-09-08] MEDS ORDERED: IBUP-232 PO (18:20)
[2017-09-08] MEDS ORDERED: LIDOCAINE HCL 1% PF 30 ML VIAL ONE (18:24)
[2017-09-08 19:13] VITALS: BP 128/91
== END 2017-09-08 19:05 | disposition home or self-care (01) ==
LOC: PHED 16:17
DX: R10.31 Right lower quadrant pain (principal); R11.0 Nausea; R30.0 Dysuria; F17.200 Nicotine dependence, unspecified, uncomplicated; J45.909 Unspecified asthma, uncomplicated; F31.9 Bipolar disorder, unspecified; Z86.69 Personal history of other diseases of the nervous system and sense organs; Z79.899 Other long term (current) drug therapy
CPT/HCPCS: 74176; 80053; 81001; 83605; 83690; 84702; 84703; 85025; 87086; 96361; 96372; 96374; 96375; 99284; J0696; J1885; J2270; J2405; J7030

== ENCOUNTER 2017-10-13 10:52 | Emergency (ER) | payer SELFPAY ==
[~2017-10-13] VITALS: Ht 167.6 cm; Wt 77.0 kg
[~2017-10-13 10:52] MED LIST changes: +IBUP-232 PO; +METR-1 PO
[2017-10-13 10:54] VITALS: BP 123/88; PULSE 77; RESP 19; TEMP 98.5; O2SAT 97
[2017-10-13 12:50] LABS: BACTERIA, URINE OCC /hpf; BILIRUBIN, URINE NEG (NEG); BLOOD, URINE NEG (NEG); GLUCOSE,URINE NEG (NEG); KETONE, URINE NEG (NEG); NITRITE,URINE NEG (NEG); SQUAMOUS EPITHELIAL CELL URINE 14 /hpf (0-5); URINE COLOR LIGHT-YELLOW (YELLW/STRAW); URINE LEUKOCYTE ESTERASE TRACE (NEG)
[2017-10-13] MEDS ORDERED: METR0.7528 VAGINAL (13:09)
[2017-10-13] MEDS ORDERED: NABU1TAB37 PO (13:09)
--- NOTE | 2017-10-13 13:10 | PD ---
HPI . Pelvic pain Chief Complaint: Abdominal Pain Time Seen by Provider: 11:22 Travel History International Travel<30 days: No Contact w/Intl Traveler<30days: No Traveled to known affect area: No History of Present Illness HPI Patient presents with the chief complaint of pelvic pain. Onset was a few days ago. Pain is rated 10/10 with no modifying factors. She also reports a white vaginal discharge but that has been a chronic problem for the last several months. The discharge is unchanged in character. She states she has not been sexually active for the last several months. Patient reports a history of polycystic ovarian disease. She states that she is not on any medication for same such as hormone treatment. PFSH Past Medical History Hx Anticoagulant Therapy: No Asthma: Yes Blood Disorders: No Bipolar Disorder: Yes Depression: Yes Cancer: No Cardiovascular Problems: No Diabetes: No Diminished Hearing: No Endocrine: No Gastrointestinal Disorders: No Genitourinary: No Immune Disorder: No Implanted Vascular Access Dvce: No Musculoskeletal: No Neurologic: Yes (BIPOLAR) Psychiatric: No Reproductive: No Respiratory: Yes Seizures: Yes (ETOH WITHDRAWL) ?: Not LMP: few weeks ago : 2 : 1 Ectopic : Yes Past Surgical History Other Surgery: No Social History Alcohol Use: Yes (OCCASIONALLY ) Tobacco Use: Yes (1 pk daily) Substance Use: No Allergies-Medications (Allergen,Severity, Reaction): Coded Allergies: No Known Allergies (Unverified Adverse Reaction, Unknown, 10/13/17) Reported Meds & Prescriptions Reported Meds & Active Scripts Active Ibuprofen 600 Mg Tab 600 Mg PO Q6H PRN Flagyl (Metronidazole) 500 Mg Tab 500 Mg PO BID 10 Days Gabapentin 800 Mg Tab 800 Mg PO QID Prozac (Fluoxetine HCl) 40 Mg Cap 40 Mg PO DAILY Reported Gabapentin 800 Mg Tab 800 Mg PO TID Prozac (Fluoxetine HCl) 20 Mg Cap 20 Mg PO DAILY Remeron (Mirtazapine) 45 Mg Tab 45 Mg PO HS Review of Systems Except as stated in HPI: all other systems reviewed are Neg Physical Exam Narrative GENERAL: Awake and alert and in no acute distress. SKIN: Warm and dry. HEAD: Normocephalic/atraumatic. EYES: Pupils are equal. Extraocular movements are intact. NECK: Normal range of motion. CARDIOVASCULAR: Regular rate and rhythm. RESPIRATORY: Nonlabored respirations. : Normal female. Whitish discharge in the vaginal vault which appears physiologic. Cervical loss is closed. She complains of tenderness on bimanual exam but did not seem to have any cervical motion tenderness. MUSCULOSKELETAL: Atraumatic. NEUROLOGICAL: Nonfocal. PSYCHIATRIC: Appropriate mood and affect. Data Data Last Documented VS Vital Signs Date Time Temp Pulse Resp B/P (MAP) Pulse Ox O2 Delivery O2 Flow Rate FiO2 10/13/17 10:54 98.5 77 19 123/88 (100) 97 Orders Orders Gc And Chlamydia Pcr (10/13/17 11:23) Wet Prep Profile (10/13/17 11:23) Urinalysis - C+S If Indicated (10/13/17 11:23) Ed Urine Pregnancytest Poc (10/13/17 11:23) Labs Laboratory Tests Test 10/13/17 11:35 10/13/17 11:37 Clue Cells (Wet Prep) PRESENT Vaginal Trichomonas (Wet Prep) NONE SEEN Vaginal Yeast (Wet Prep) NONE SEEN Urine Color LIGHT-YELLOW Urine Turbidity HAZY Urine pH 7.0 Urine Specific [place] 1.007 Urine Protein NEG mg/dL Urine Glucose (UA) NEG mg/dL Urine Ketones NEG mg/dL Urine Occult Blood NEG Urine Nitrite NEG Urine Bilirubin NEG Urine Urobilinogen LESS THAN 2.0 MG/DL Urine Leukocyte Esterase TRACE Urine RBC LESS THAN 1 /hpf Urine WBC LESS THAN 1 /hpf Urine Squamous Epithelial Cells 14 /hpf Urine Bacteria OCC /hpf Microscopic Urinalysis Comment CULT NOT INDICATED MDM Medical Decision Making Medical Screen Exam Complete: Yes Emergency Medical Condition: Yes Differential Diagnosis Differential diagnosis of pelvic pain includes but is not limited to UTI, PID, ectopic , spontaneous AB, constipation, viral illness Narrative Course This patient presents with pelvic pain. She reports a history of polycystic ovarian disease. Her pelvic exam is relatively benign. She reports tenderness on bimanual examination but does not have any cervical motion tenderness. She does not have a purulent discharge. HCG negative. UA negative. Wet prep is positive for clue cells. This patient has pelvic pain. I do not believe that she has PID. She does have BV based upon her wet prep. She will be discharged home with prescriptions for MetroGel vaginal and Relafen. Follow-up with her primary care physician if symptoms persist. Diagnosis Primary Impression: Pelvic pain in female Additional Impression: Bacterial vaginosis Patient Instructions: Bacterial Vaginosis (DC), General Instructions, Pelvic Pain in Women (DC) Med/Other Pt SpecificInfo: Prescription(s) given Scripts Nabumetone (Nabumetone) 500 Mg Tab 500 MG PO BID for Pain-Inflammation, #60 TAB 0 Refills Prov: Leonela Yanez MD 10/13/17 Metronidazole Vaginal Gel (Metrogel Vaginal Gel) 0.75 % Gel 1 APPL VAGINAL HS for Infection, #1 TUBE 0 Refills Prov: Leonela Yanez MD 10/13/17 Disposition: 01 DISCHARGE HOME Condition: Stable Leonela Yanez MD October 13, 2017 13:10
[2017-10-13 13:25] VITALS: BP 124/76; TEMP 97.9
== END 2017-10-13 13:25 | disposition home or self-care (01) ==
LOC: NEPD 10:52
DX: N76.0 Acute vaginitis (principal); B96.89 Other specified bacterial agents as the cause of diseases classified elsewhere; F31.9 Bipolar disorder, unspecified; F17.200 Nicotine dependence, unspecified, uncomplicated
CPT/HCPCS: 81001; 84703; 87210; 87491; 87591; 99283

== ENCOUNTER 2017-11-01 12:10 | Emergency (ER) | payer SELFPAY ==
[~2017-11-01] VITALS: Ht 167.6 cm; Wt 73.6 kg
[~2017-11-01 12:10] MED LIST changes: +METR0.7528 VAGINAL; +NABU1TAB37 PO
[2017-11-01 12:14] VITALS: BP 111/69; PULSE 93; RESP 18; TEMP 99; O2SAT 97
--- NOTE | 2017-11-01 12:33 | PD ---
HPI Chief Complaint: General Weakness Time Seen by Provider: 12:24 Travel History International Travel<30 days: No Contact w/Intl Traveler<30days: No Traveled to known affect area: No History of Present Illness HPI This 37-year-old female is complaining of generalized weakness. She has for the past week she has been very tired. She has been sleeping more than usual. She is somewhat achy. She does not have any pain. Is quite sure she is not . She has not been sexually active for 3-1/2 months. Prior to that she had had a period of amenorrhea and had multiple negative tests. She has a history of cysts on her ovary and has chronic lower abdominal pain. She does have a history of bipolar disorder and is on Prozac, Remeron and gabapentin. She has been on the same medications and doses for about 8 years. There is been no recent change in medication. There is been no fever or chills. He does not drink alcohol. She does not use recreational drugs PFSH Past Medical History Hx Anticoagulant Therapy: No Asthma: Yes Blood Disorders: No Bipolar Disorder: Yes Depression: Yes Cancer: No Cardiovascular Problems: No Diabetes: No Diminished Hearing: No Endocrine: No Gastrointestinal Disorders: No Genitourinary: No Immune Disorder: No Implanted Vascular Access Dvce: No Musculoskeletal: No Neurologic: Yes (BIPOLAR) Psychiatric: No Reproductive: No Respiratory: Yes Seizures: Yes (ETOH WITHDRAWL) ?: Not LMP: 10/01/17 : 2 : 1 Ectopic : Yes Past Surgical History Other Surgery: No Social History Alcohol Use: Yes (OCCASIONALLY ) Tobacco Use: Yes (1 pk daily) Substance Use: No Allergies-Medications (Allergen,Severity, Reaction): Coded Allergies: No Known Allergies (Unverified Adverse Reaction, Unknown, 11/01/17) Reported Meds & Prescriptions Reported Meds & Active Scripts Active Prozac (Fluoxetine HCl) 40 Mg Cap 40 Mg PO DAILY Reported Trazodone (Trazodone HCl) 50 Mg Tab 50 Mg PO HS Gabapentin 800 Mg Tab 600 Mg PO TID Remeron (Mirtazapine) 45 Mg Tab 30 Mg PO HS Review of Systems General / Constitutional: No: Fever, Chills Eyes: No: Diploplia, Blurred Vision HENT: No: Headaches Cardiovascular: No: Chest Pain or Discomfort, Palpitations Respiratory: No: Cough, Shortness of Breath Gastrointestinal: No: Vomiting, Diarrhea Genitourinary: No: Urgency, Frequency Musculoskeletal: Positive: Myalgias Skin: No Rash Neurologic: Positive: Weakness Endocrine: No: Heat Intolerance, Cold Intolerance Hematologic/Lymphatic: No: Easy Bruising Physical Exam Narrative GENERAL: Well-developed female SKIN: Focused skin assessment warm/dry. HEAD: Atraumatic. Normocephalic. EYES: Pupils equal and round. No scleral icterus. No injection or drainage. ENT: No nasal bleeding or discharge. Mucous membranes pink and moist. NECK: Trachea midline. No JVD. CARDIOVASCULAR: Regular rate and rhythm. No murmur appreciated. RESPIRATORY: No accessory muscle use. Clear to auscultation. Breath sounds equal bilaterally. GASTROINTESTINAL: Abdomen soft, non-tender, nondistended. Hepatic and splenic margins not palpable. MUSCULOSKELETAL: No obvious deformities. No clubbing. No cyanosis. No edema. NEUROLOGICAL: Awake and alert. No obvious cranial nerve deficits. Motor grossly within normal limits. Normal speech. PSYCHIATRIC: Appropriate mood and affect; insight and judgment normal. Data Data Last Documented VS Vital Signs Date Time Temp Pulse Resp B/P (MAP) Pulse Ox O2 Delivery O2 Flow Rate FiO2 11/01/17 12:14 99.0 93 18 111/69 (83) 97 Orders Orders Complete Blood Count With Diff (11/01/17 12:30) Comprehensive Metabolic Panel (11/01/17 12:30) Urinalysis - C+S If Indicated (11/01/17 12:30) I-Stat Profile (11/01/17 12:40) Labs Laboratory Tests Test 11/01/17 12:40 11/01/17 12:45 White Blood Count 8.2 TH/MM3 Red Blood Count 4.97 MIL/MM3 Hemoglobin 14.3 GM/DL Bedside Hemoglobin G/DL Hematocrit 43.0 % Bedside Hematocrit % Mean Corpuscular Volume 86.5 FL Mean Corpuscular Hemoglobin 28.6 PG Mean Corpuscular Hemoglobin Concent 33.1 % Red Cell Distribution Width 12.2 % Platelet Count 162 TH/MM3 Mean Platelet Volume 11.3 FL Neutrophils (%) (Auto) 63.0 % Lymphocytes (%) (Auto) 26.8 % Monocytes (%) (Auto) 6.6 % Eosinophils (%) (Auto) 1.1 % Basophils (%) (Auto) 2.5 % Neutrophils # (Auto) 5.2 TH/MM3 Lymphocytes # (Auto) 2.2 TH/MM3 Monocytes # (Auto) 0.5 TH/MM3 Eosinophils # (Auto) 0.1 TH/MM3 Basophils # (Auto) 0.2 TH/MM3 CBC Comment DIFF FINAL Differential Comment Bedside Sodium 139 MMOL/L Blood Urea Nitrogen 10 MG/DL Creatinine 0.76 MG/DL Random Glucose 97 MG/DL Total Protein 7.1 GM/DL Albumin 4.0 GM/DL Calcium Level 8.8 MG/DL Alkaline Phosphatase 63 U/L Aspartate Amino Transf (AST/SGOT) 21 U/L Alanine Aminotransferase (ALT/SGPT) 22 U/L Total Bilirubin 0.3 MG/DL Sodium Level 139 MEQ/L Potassium Level 3.8 MEQ/L Chloride Level 107 MEQ/L Carbon Dioxide Level 24.1 MEQ/L Bedside Potassium 3.8 MMOL/L Bedside Chloride 103 MMOL/L Anion Gap 8 MEQ/L Bedside Blood Urea Nitrogen 11 MG/DL Bedside Creatinine 0.7 MG/DL Estimat Glomerular Filtration Rate 86 ML/MIN Bedside Glucose 93 MG/DL Urine Collection Type CLEAN CATCH Urine Color YELLOW Urine Turbidity CLEAR Urine pH 6.5 Urine Specific [place] 1.010 Urine Protein NEG mg/dL Urine Glucose (UA) NEG mg/dL Urine Ketones NEG mg/dL Urine Occult Blood NEG Urine Nitrite NEG Urine Bilirubin NEG Urine Urobilinogen 0.2 MG/DL Urine Leukocyte Esterase NEG Urine WBC 0-2 /hpf Urine Squamous Epithelial Cells > 8 /hpf Microscopic Urinalysis Comment CULT NOT INDICATED MDM Medical Decision Making Medical Screen Exam Complete: Yes Emergency Medical Condition: Yes Medical Record Reviewed: Yes Differential Diagnosis Differential includes anemia, diabetes, UTI Narrative Course She is not anemic. Her white count is normal. Blood chemistries are normal. Urinalysis is negative for infection. I have not found a cause for the lady symptoms but her lab work is stable and her exam is unremarkable. She is stable for discharge Diagnosis Primary Impression: Fatigue Disposition: 01 DISCHARGE HOME Condition: Stable Kole Lewis MD November 01, 2017 12:33
[2017-11-01 12:58] LABS: AUTOMATED NEUTROPHIL # 5.2 TH/MM3 (1.8-7.7); BASOPHIL # 0.2 TH/MM3 (0-0.2); BASOPHIL % 2.5 % (0.0-2.0); EOSINOPHIL # 0.1 TH/MM3 (0-0.4); EOSINOPHIL % 1.1 % (0.0-4.0); HEMOGLOBIN 14.3 GM/DL (11.6-15.3); LYMPH % 26.8 % (9.0-44.0); LYMPHOCYTE # 2.2 TH/MM3 (1.0-4.8); MEAN CELL VOLUME 86.5 FL (80.0-100.0); MEAN CORPUSCULAR HEMOGLOBIN 28.6 PG (27.0-34.0); MEAN CORPUSCULAR HGB CONC 33.1 % (32.0-36.0); MEAN PLATELET VOLUME 11.3 FL (7.0-11.0); MONO % 6.6 % (0.0-8.0); MONOCYTE # 0.5 TH/MM3 (0-0.9); PLATELET COUNT 162 TH/MM3 (150-450); RED BLOOD COUNT 4.97 MIL/MM3 (4.00-5.30); RED CELL DISTRIBUTION WIDTH 12.2 % (11.6-17.2); WHITE BLOOD COUNT 8.2 TH/MM3 (4.0-11.0)
[2017-11-01] MEDS ORDERED: TRAZ50TA12 PO (13:02)
[2017-11-01 13:09] LABS: BILIRUBIN, URINE NEG (NEG); BLOOD, URINE NEG (NEG); GLUCOSE,URINE NEG (NEG); KETONE, URINE NEG (NEG); NITRITE,URINE NEG (NEG); PH, URINE 6.5 (5.0-8.5); URINE COLOR YELLOW (YELLW/STRAW); URINE LEUKOCYTE ESTERASE NEG (NEG)
[2017-11-01 13:20] VITALS: BP 118/59; PULSE 72; RESP 16; O2SAT 98
[2017-11-01 13:24] LABS: SQUAMOUS EPITHELIAL CELL URINE > 8 /hpf (0-5); WBC, URINE 0-2 /hpf (0-5)
[2017-11-01 13:56] LABS: CHLORIDE 107 MEQ/L (98-107); SODIUM (NA) 139 MEQ/L (136-145)
[2017-11-01 14:00] LABS: BICARBONATE 24.1 MEQ/L (21.0-32.0); BLOOD UREA NITROGEN 10 MG/DL (7-18); CALCIUM 8.8 MG/DL (8.5-10.1); GLUCOSE,RANDOM 97 MG/DL (74-106)
[2017-11-01 14:03] LABS: ALT (GPT) 22 U/L (10-53); AST (GOT) 21 U/L (15-37); CREATININE 0.76 MG/DL (0.50-1.00); GLOMERULAR FILTRATION RATE 86 ML/MIN (>89)
[2017-11-01 14:05] LABS: TOTAL BILIRUBIN ADULT 0.3 MG/DL (0.2-1.0); TOTAL PROTEIN 7.1 GM/DL (6.4-8.2)
[2017-11-01 14:06] LABS: ALKALINE PHOSPHATASE 63 U/L (45-117)
[2017-11-01 14:15] VITALS: BP 115/70
== END 2017-11-01 14:15 | disposition home or self-care (01) ==
LOC: PHED 12:10
DX: R53.83 Other fatigue (principal); J45.909 Unspecified asthma, uncomplicated; F31.9 Bipolar disorder, unspecified; F17.200 Nicotine dependence, unspecified, uncomplicated; Z86.69 Personal history of other diseases of the nervous system and sense organs; Z79.899 Other long term (current) drug therapy
CPT/HCPCS: 80048; 80053; 81001; 85025; 99283